=== PATIENT | male | born 1960 | race Two or more races ===

== ENCOUNTER 2023-04-11 16:10 | Emergency (ER) | payer MEDICAID, OTHER ==
[~2023-04-11] VITALS: Ht 172.7 cm; Wt 81.1 kg
[~2023-04-11 16:10] MED LIST: NORPTMEDS CO
[2023-04-11 18:36] VITALS: BP 154/79; PULSE 102; RESP 16; TEMP 98.4; O2SAT 98
[2023-04-11] MEDS ORDERED: AZIT-43 PO (18:37)
[2023-04-11] MEDS ORDERED: PRED20TA2 PO (18:37)
== END 2023-04-11 18:38 | disposition home or self-care (01) ==
LOC: ER 16:10
DX: J06.9 Acute upper respiratory infection, unspecified (principal); J20.9 Acute bronchitis, unspecified; F17.210 Nicotine dependence, cigarettes, uncomplicated; F12.10 Cannabis abuse, uncomplicated